=== PATIENT | male | born 1980 | race Caucasian/White ===

== ENCOUNTER 2016-12-02 13:41 | Emergency (ER) | payer MEDICAID ==
[~2016-12-02] VITALS: Ht 160 cm; Wt 89.0 kg
[2016-12-02 13:44] VITALS: Ht 160 cm; Wt 89.0 kg
[2016-12-02] MEDS ORDERED: NAPR-260 PO (14:28)
[2016-12-02] MEDS ORDERED: OSLT75C PO (14:28)
--- NOTE | 2016-12-02 14:35 | ERD ---
ER Documentation Chief Complaint Date/Time DATE: 12/02/16 TIME: 14:31 Chief Complaint body aches,fever, vomited x 1 HPI 36-year-old male complaining of fever and body aches since Monday evening, 2 days ago. T-max at home was 102. He took ibuprofen and Tylenol at home for fever. He vomited once today. Patient reports slight cough and congestion. Denies shortness of breath. Denies abdominal pain or diarrhea. ROS All systems reviewed and are negative except as per history of present illness. Medications Home Meds Active Scripts Naproxen* (Naprosyn*) 500 Mg Tablet, 500 MG PO BID Y for PAIN AND OR ELEVATED TEMP, #30 TAB Prov:ENZO BAILON. SCHOOL GUIDANCE COUNSELOR 12/02/16 Oseltamivir Phosphate* (Tamiflu*) 75 Mg Capsule, 75 MG PO BID for 5 Days, CAP Prov:ENZO BAILON. SCHOOL GUIDANCE COUNSELOR 12/02/16 PMhx/Soc Medical and Surgical Hx: pt denies Medical Hx Physical Exam Vitals Vital Signs Date Time Temp Pulse Resp B/P Pulse Ox O2 Delivery O2 Flow Rate FiO2 12/02/16 13:44 101.5 110 24 127/82 99 Physical Exam General impression: Well-developed, well-nourished. Alert, oriented, in no acute distress Head: Normocephalic, atraumatic. Eyes: PERRL, EOM normal. Sclerae are normal. Conjunctiva not injected. ENT: External canals patent. TM'sclear. Nasal mucosa erythematous and swollen. Oral mucosa and oropharynx are normal. Neck: Supple, nontender. No lymphadenopathy. No nuchal rigidity. Respiration: Normal respiratory effort. Lungs clear to auscultate bilaterally. No wheezes, rales or rhonchi. Cardiovascular: Regular rate and rhythm. No murmurs or extra heart sounds. Abdomen: Abdomen normal to inspection. Nontender. No masses or organomegaly. Bowel sounds normal. Neuro: Mental status normal, speech normal. MANAGER AGRICULTURE grossly intact. Skin: Normal turgor. No rash or lesions. Psych: Normal mood and affect. Procedures/MDM 36-year-old male presented ED was fever and body aches 2 days. Patient history exam findings are consistent with flulike illness. I doubt pneumonia or bronchitis. I doubt acute appendicitis, cholecystitis, pancreatitis, bowel obstruction, or other acute abdomen. Low suspicion for meningitis. Since patient's symptom onset is less than 48 hours, I will prescribe him with Tamiflu. Patient was seen at [facility], he does not want to wait for ED to to get Tylenol or ibuprofen at this time. Patient appears stable for discharge and outpatient management. Medical decision making shared with patient and family. Education provided to patient and family. Patient and family expressed understanding of the plan. Medications on discharge: Tamiflu, naproxen. Follow-up: Primary care provider in 2-3 days or return to ED if worse. Departure Diagnosis: Primary Impression: Influenza Patient Instructions: Influenza (Adult) Referrals: [facility] YOU HAVE RECEIVED A MEDICAL SCREENING EXAM AND THE RESULTS INDICATE THAT YOU DO NOT HAVE A CONDITION THAT REQUIRES URGENT TREATMENT IN THE EMERGENCY DEPARTMENT. FURTHER EVALUATION AND TREATMENT OF YOUR CONDITION CAN WAIT UNTIL YOU ARE SEEN IN YOUR DOCTORS OFFICE WITHIN THE NEXT 1-2 DAYS. IT IS YOUR RESPONSIBILITY TO MAKE AN APPOINTMENT FOR FOLOW-UP CARE. IF YOU HAVE A PRIMARY DOCTOR --you should call your primary doctor and schedule an appointment IF YOU DO NOT HAVE A PRIMARY DOCTOR YOU CAN CALL OUR PHYSICIAN REFERRAL HOTLINE AT IF YOU CAN NOT AFFORD TO SEE A PHYSICIAN YOU CAN CHOSE FROM THE FOLLOWING [facility] [address] [facility]. [facility] [address] [facility] [facility] [address] [facility] [facility] [address] [facility]. [facility] [address] [facility]. [facility]. [address] Additional Instructions: Call your primary care doctor TOMORROW for an appointment during the next 2-3 days.See the doctor sooner or return here if your condition worsens before your appointment time. ENZO BAILON NP Dec 02, 2016 14:35
== END 2016-12-02 14:29 | disposition home or self-care (01) ==
LOC: E/R 13:41
DX: J11.1 Influenza due to unidentified influenza virus with other respiratory manifestations (principal)
CPT/HCPCS: 99283

== ENCOUNTER 2016-12-04 07:47 | Emergency (ER) | payer MEDICAID, OTHER ==
[~2016-12-04] VITALS: Ht 162.6 cm; Wt 72.0 kg
[~2016-12-04 07:47] MED LIST: NAPR-260 PO; OSLT75C PO
[2016-12-04 07:55] VITALS: Ht 162.6 cm; Wt 72.0 kg
[2016-12-04] MEDS ORDERED: BENZ100C70 PO (08:06)
[2016-12-04] MEDS ORDERED: AZIT250T94 PO (08:06)
--- NOTE | 2016-12-04 08:17 | ERD ---
ER Documentation Chief Complaint Date/Time DATE: 12/04/16 TIME: 08:15 Chief Complaint cough with phlegm x1 day HPI Patient is a 36-year-old male with no medical problems who presents with fever and cough. The patient said that the symptoms started on Monday. 2 days ago the patient was seen in the emergency department and was started on Tamiflu and Naprosyn. He said that is symptoms have mostly gotten better but that he has started with a productive cough over the past 2 days that has been been "a ridiculous amount of phlegm". He said that his cough is very hard. He thinks that he may have gotten a bacterial infection on top of the flu. He does not currently have a primary doctor. ROS All systems reviewed and are negative except as per history of present illness. Medications Home Meds Active Scripts Benzonatate* (Tessalon Perle*) 100 Mg Capsule, 100 MG PO Q8H Y for COUGH, #30 CAP Prov:MAURILIO BOSS MD 12/04/16 Azithromycin* (Zithromax*) 250 Mg Tablet, 250 MG PO .ZPACK DIRECTED, #6 TAB TAKE 500 MG (2 TABS) THE FIRST DAY THEN 250 MG (1 TAB) DAYS 2-5 Prov:MAURILIO BOSS MD 12/04/16 Naproxen* (Naprosyn*) 500 Mg Tablet, 500 MG PO BID Y for PAIN AND OR ELEVATED TEMP, #30 TAB Prov:ENZO BAILON. SUPERVISOR WASH HOUSE 12/02/16 Oseltamivir Phosphate* (Tamiflu*) 75 Mg Capsule, 75 MG PO BID for 5 Days, CAP Prov:ENZO BAILON. SUPERVISOR WASH HOUSE 12/02/16 Allergies Allergies: Coded Allergies: Codeine (Verified Allergy, 12/04/16) PMhx/Soc Medical and Surgical Hx: pt denies Medical Hx History of Surgery: Yes (hernia) FmHx Family History: diabetes Physical Exam Vitals Vital Signs Date Time Temp Pulse Resp B/P Pulse Ox O2 Delivery O2 Flow Rate FiO2 12/04/16 07:55 98.1 98 20 119/78 93 Physical Exam Const: Mild distress Head: Atraumatic Eyes: Normal Conjunctiva ENT: Normal External Ears, Nose and Mouth. Neck: Full range of motion..~ No meningismus. Resp: Clear to auscultation bilaterally Cardio: Regular rate and rhythm, no murmurs Abd: Soft, non tender, non distended. Normal bowel sounds Skin: No petechiae or rashes Back: No midline or flank tenderness Ext: No cyanosis, or edema Neur: Awake and alert Psych: Normal Mood and Affect Procedures/MDM Patient is a 36-year-old male presents with a cough with productive sputum. I believe he may have a bacterial bronchitis now on top of his viral illness. The patient will be treated with Zithromax and Tessalon Perles. I do not believe the patient requires further workup or admission to the hospital at this time. His lung sounds are normal and I doubt pneumonia, pneumothorax, or pulmonary embolism. I believe outpatient management is appropriate. The patient's vital signs are normal. The patient can return for any worsening symptoms. He should follow-up with a local clinic within 1 week for reevaluation. Departure Diagnosis: Primary Impression: Bronchitis Additional Impression: Sore throat Condition: Fair Patient Instructions: Bronchitis, Antiobiotic Treatment (Adult) Referrals: [facility] YOU HAVE RECEIVED A MEDICAL SCREENING EXAM AND THE RESULTS INDICATE THAT YOU DO NOT HAVE A CONDITION THAT REQUIRES URGENT TREATMENT IN THE EMERGENCY DEPARTMENT. FURTHER EVALUATION AND TREATMENT OF YOUR CONDITION CAN WAIT UNTIL YOU ARE SEEN IN YOUR DOCTORS OFFICE WITHIN THE NEXT 1-2 DAYS. IT IS YOUR RESPONSIBILITY TO MAKE AN APPOINTMENT FOR FOLOW-UP CARE. IF YOU HAVE A PRIMARY DOCTOR --you should call your primary doctor and schedule an appointment IF YOU DO NOT HAVE A PRIMARY DOCTOR YOU CAN CALL OUR PHYSICIAN REFERRAL HOTLINE AT IF YOU CAN NOT AFFORD TO SEE A PHYSICIAN YOU CAN CHOSE FROM THE FOLLOWING [facility] [address] [facility] [address] [facility] [facility] [address] [facility] [address] [facility] [address] [facility]. [facility]. [address] Additional Instructions: Call your primary care doctor TOMORROW for an appointment during the next 1 WEEK.Tell the audio visual secretary that you were referred from this facility.See the doctor sooner or return here if your condition worsens before your appointment time. MAURILIO BOSS MD Dec 04, 2016 08:16
== END 2016-12-04 08:37 | disposition home or self-care (01) ==
LOC: FTE 07:47
DX: J20.9 Acute bronchitis, unspecified (principal); J02.9 Acute pharyngitis, unspecified
CPT/HCPCS: 99284